=== PATIENT | female | born 1975 | race Two or more races ===

== ENCOUNTER 2021-04-15 11:13 | Emergency (ER) | payer MEDICAID, OTHER ==
[~2021-04-15] VITALS: Ht 160 cm; Wt 81.6 kg
[2021-04-15] MEDS ORDERED: ASPirin 81 mg TAB PO ONE (11:30)
[2021-04-15 12:06] LABS: Basophils # (auto) 0.1 10 ^3/uL (0-0.2); Eosinophils # (auto) 0.2 10 ^3/uL (0-0.8); Monocytes # (auto) 0.5 10 ^3/uL (0-1.3); Monocytes % (auto) 4.6 % (0.0-12.0)
[2021-04-15 12:08] LABS: Basophils % (auto) 0.7 % (0.0-2.0); Eosinophils % (auto) 2.2 % (0.0-7.0); Hematocrit 41.1 % (36.0-46.0); Hemoglobin 13.6 g/dL (12.2-16.2); Lymphocytes # (auto) 2.6 10 ^3/uL (0.4-5.4); Lymphocytes % (auto) 26.2 % (10.0-50.0); Mean Corpuscular Hemoglobin 25.1 pg (28.0-32.0); Mean Corpuscular Hgb Conc. 33.1 g/dL (32.0-36.0); Mean Corpuscular Volume 75.9 fL (80.0-100.0); Neutrophils # (auto) 6.6 10 ^3/uL (1.6-8.6); Neutrophils % (auto) 66.3 % (37.0-80.0); Nucleated Red Blood Cells % 0.1 %; Red Blood Cells 5.42 10^6/uL (4.0-5.20); Red Cell Distribution Width 16.3 % (11.8-14.3)
[2021-04-15 12:21] LABS: Albumin 3.3 g/dL (3.4-5.0); Anion Gap 8 (5-15); Blood Urea Nitrogen 16 mg/dL (7-18); Calcium 8.9 mg/dL (8.5-10.1); Carbon Dioxide 26 mmol/L (21-32); Chloride 106 mmol/L (98-107); Glucose 131 mg/dL (74-106); Potassium 3.7 mmol/L (3.5-5.1); Sodium 140 mmol/L (136-145)
[2021-04-15 12:27] LABS: Alanine Aminotransferase 26 U/L (13-56); Alkaline Phosphatase 153 U/L (45-117); Aspartate Aminotransferase 12 U/L (15-37); BUN/Creatinine Ratio 27.1; Bilirubin, Total 0.4 mg/dL (0.2-1.0); GFR African American 142 mL/min; GFR Non-African American 118 mL/min
[2021-04-15 13:57] VITALS: BP 118/66
== END 2021-04-15 13:59 | disposition home or self-care (01) ==
LOC: ER 11:13
DX: R07.89 Other chest pain (principal); I10 Essential (primary) hypertension
CPT/HCPCS: 36415; 71046; 80053; 84484; 85025; 85379; 93005

== ENCOUNTER → 2022-12-20 | Outpatient (CLI) | payer MEDICAID ==
[2022-12-20 09:23] LABS: Basophils # (auto) 0 10 ^3/uL (0-0.2); Basophils % (auto) 0.3 % (0.0-2.0); Mean Corpuscular Hgb Conc. 33.4 g/dL (32.0-36.0); Neutrophils # (auto) 8.7 10 ^3/uL (1.6-8.6)
[2022-12-20 09:25] LABS: Eosinophils # (auto) 0.2 10 ^3/uL (0-0.8); Hemoglobin 13.3 g/dL (12.2-16.2); Lymphocytes # (auto) 2.3 10 ^3/uL (0.4-5.4); Lymphocytes % (auto) 19.5 % (10.0-50.0); Mean Corpuscular Hemoglobin 26.6 pg (28.0-32.0); Mean Corpuscular Volume 79.8 fL (80.0-100.0); Monocytes # (auto) 0.7 10 ^3/uL (0-1.3); Monocytes % (auto) 5.7 % (0.0-12.0); Neutrophils % (auto) 72.5 % (37.0-80.0); Red Blood Cells 5.01 10^6/uL (4.0-5.20); Red Cell Distribution Width 14.3 % (11.8-14.3)
[2022-12-20 09:33] LABS: Urine Bacteria FEW /hpf (None Seen); Urine Blood Negative /uL (Negative); Urine Hyaline Cast FEW /lpf (0 - 2); Urine Specific Gravity 1.008 (1.001-1.035); Urine WBC 2 /hpf (0 - 5)
[2022-12-20 10:40] LABS: Potassium 3.9 mmol/L (3.5-5.1)
[2022-12-20 10:54] LABS: Albumin 3.4 g/dL (3.4-5.0); BUN/Creatinine Ratio 26.3 (10.0-20.0); Bilirubin, Total 0.4 mg/dL (0.2-1.0); Calcium 8.7 mg/dL (8.5-10.1); Total Protein 7.7 g/dL (6.4-8.2); Uric Acid 4.2 mg/dL (2.6-6.0)
== END | disposition home or self-care (01) ==
LOC: LAB 08:53
PROVIDERS: ATTEND Student in an Organized Health Care Education/Training Program
DX: I10 Essential (primary) hypertension (principal); R73.9 Hyperglycemia, unspecified; E55.9 Vitamin D deficiency, unspecified; M25.50 Pain in unspecified joint
CPT/HCPCS: 36415; 80053; 80061; 81001; 82306; 84439; 84443; 84550; 85025; 86038; 86431

== ENCOUNTER 2025-04-01 17:59 | Emergency (ER) | payer MEDICAID ==
[~2025-04-01] VITALS: Ht 162.6 cm; Wt 83.2 kg
[2025-04-01 18:00] VITALS: BP 165/97; PULSE 97; RESP 16; TEMP 98; O2SAT 95
[2025-04-01] MEDS ORDERED: CYCL-614 PO (18:46)
[2025-04-01] MEDS ORDERED: IBUP-1456 PO (18:46)
--- NOTE | 2025-04-01 18:48 | ED.PDOC ---
Musculoskeletal HPI Comments 49-year-old female presents to ER with complaints of back pain x one week. Patient with past medical history significant for chronic lower lumbar back pain x1 year reports that she has been experiencing worsening lower lumbar back pain x1 week. She rates her current pain a 9/10 to right lower lumbar region with radiation down right posterior leg. States she has been taking ibuprofen for her pain with slight relief. Patient presents to ER ambulatory on arrival, in mild distress. Denies fever, body aches, chills, night sweats, numbness/tingling, trauma/falls, abdominal/pelvic pain, chest pain, changes in urination/BM or any further symptoms/complain Chief Complaint: Lower Extremity Time Seen by MD: 18:13 Primary Care Provider: DEIDRE Sneed Notes: Nurses Notes, Medications, Allergies Allergies: Coded Allergies: NO KNOWN ALLERGIES (Unverified , 04/15/21) Home Meds Active Scripts Cyclobenzaprine HCl (Cyclobenzaprine Hydrochlo) 5 Mg Tab, 5 MG PO QHSP, #14 TAB 0 Refills Prov:JOSEPH LAMBERT 04/01/25 Ibuprofen (Ibuprofen) 800 Mg Tab, 1 TAB PO TID PRN, #30 TAB 0 Refills Prov:JOSEPH LAMBERT 04/01/25 Information Source: Patient Mode of Arrival: Ambulatory Past Medical History PAST MEDICAL HISTORY: HTN Past Medical History (Other): Chronic lumbar back pain x "x 1 year" Surgical History: SUPPLY REQUIREMENTS OFFICER History: No Pertinent SUPPLY REQUIREMENTS OFFICER History Family History Family History: Family hx of DM Social History Smoker: Non-Smoker Alcohol: Denies ETOH Use Drugs: Denies Drug Use Lives In: Home Constitutional: denies: chills, diaphoresis, fatigue, fever, malaise, sweats, weakness, others EENTM: denies: blurred vision, double vision, ear bleeding, ear discharge, ear drainage, ear pain, ear ringing, eye pain, eye redness, hearing loss, mouth pain, mouth swelling, nasal discharge, nose bleeding, nose congestion, nose pain, photophobia, tearing, throat pain, throat swelling, voice changes, others Respiratory: denies: cough, hemoptysis, orthopnea, SOB at rest, shortness of breath, SOB with excertion, stridor, wheezing, others Cardiovascular: denies: chest pain, dizzy spells, diaphoresis, Dyspnea on exertion, edema, irregular heart beat, left arm pain, lightheadedness, palpitations, PND, syncope, others Gastrointestinal: denies: abdomen distended, abdominal pain, blood streaked bowels, constipated, diarrhea, dysphagia, difficulty swallowing, hematemesis, melena, nausea, poor appetite, poor fluid intake, rectal bleeding, rectal pain, vomiting, others Genitourinary: denies: abnormal vagina bleeding, burning, dyspareunia, dysuria, flank pain, frequency, hematuria, incontinence, pain, , vagina discharge, urgency, others Neurological: denies: dizziness, fainting, headache, left sided numbness, left sided weakness, numbness, paresthesia, pre-existing deficit, right sided numbness, right sided weakness, seizure, speech problems, tingling, tremors, weakness, others Musculoskeletal: reports: others (As stated in HPI) Integumetry: denies: bruises, change in color, change in hair/nails, dryness, laceration, lesions, lumps, rash, wounds, others Allergic/Immunocompromised: denies: Difficulty Healing, Frequent Infections, Hives, Itching, others Hematologic/Lymphatic: denies: anemia, blood clots, easy bleeding, easy bruising, swollen glands, others Endocrine: denies: excessive hunger, excessive sweating, excessive thirst, excessive urination, flushing, intolerance to cold, intolerance to heat, unexplained weight gain, unexplained weight loss, others Psychiatric: denies: anxiety, bipolar disorder, depression, hopeless, panic disorder, schizophrenia, sleepless, suicidal, others Physical Exam General Appearance: Mild Distress, Obese HEENT: PERRL/EOMI Neck: Full Range of Motion, Non-Tender, Normal Respiratory: Chest Non-Tender, Lungs Clear, No Accessory Muscle Use, No Respiratory Distress, Normal Breath Sounds Cardiovascular: No Murmur, No Gallop, Regular Rate/Rhythm Breast Exam: Deferred Gastrointestinal: Non Tender, No Pulsatile Mass, Soft Genitalia: Deferred Pelvic: Deferred Rectal: Deferred Extremities: No calf tenderness, Normal capillary refill, Normal range of motion Musculoskeletal : Extremity Location: Back (TTP to right lower lumbar paraspinals noted. No skin changes noted. Gait slowed due to pain localized to right lower lumbar paraspinals) Neurologic: Alert, No Motor Deficits, No Sensory Deficits Cerebellar Function: Normal Reflexes: Normal Skin: Dry, Normal Color, Warm Peripheral Pulses: 2+ femoral (R), 2+ femoral (L), 2+ dorsalis pedis (R), 2+ dorsalis pedis (L), 2+ Radial (R), 2+ Radial (L), 2+ Brachial (R), 2+ Brachial (L) Lymphatic: No Adenopathy Was a procedure done? Was a procedure done?: No Sedation Sedation?: No Differential Diagnosis EXT Differential Diagnosis: Fracture, Dislocation, Myocardial Infarction, Neurovascular injury X-Ray, Labs, Meds, VS Vital Signs Date Time Temp Pulse Resp B/P (MAP) Pulse Ox O2 Delivery O2 Flow Rate FiO2 04/01/25 18:00 98.0 97 16 165/97 95 98.0 Current Medications Medications (Trade) Dose Ordered Sig/Lyla Route Start Time Stop Time Status Last Admin Ketorolac Tromethamine (Toradol Injection) 60 mg ONCE ONCE IM 04/01/25 18:45 04/01/25 18:46 DC 04/01/25 18:52 PATIENT: HOWARD RENECCT: [id number]: [id number] : 1975 LOC: ER ROOM / BED: / AGE / SEX: 49 / F ADM STATUS: REG ER SERVICE 40 ORDERING PHYSICIAN: JOSEPH LAMBERT PROCEDURE(s): LUMB2 - LUMBAR SPINE 3 VIEW REASON: lumbar back pain ORDER NUMBER(s): [id number], ACCESSION NUMBER(s): [id number] EXAM: XY LUMBAR SPINE 3 VIEW INDICATION: lumbar back pain TECHNIQUE: 3 views of the lumbar spine COMPARISON: None FINDINGS/IMPRESSION: No radiographic evidence of an acute osseous abnormality. There is no acute fracture, osseous malalignment, or aggressive focal osseous lesion. Gentle rotatory levocurvature centered at the thoracolumbar junction. Severe stool burden throughout the visualized colon. Calcified fibroids. Relative bony foraminal narrowing at L4-L5 and L5-S1. ATED BY: CHRIS TRIANA MD DICTATED DATE/TIME: 04/01/251928 SIGNED BY: CHRIS TRIANA MD SIGNED DATE/TIME: 04/01/251928 CC: Lumbar spine x-ray reviewed Toradol 60 mg IM ordered Patient had improvement in symptoms and in no distress prior to discharge Advised on rest/no strenuous activity Advised to follow up with PCP in 1-2 days Patient verbalized understanding and agreeable with current plan of care Advised to return to ER immediately if symptoms worsen Images Reviewed?: Images reviewed and evaluated by me Time of 1ST Reevaluation: 18:20 Reevaluation 1ST: N/A Patient Education/Counseling: Diagnosis, Treatment, Prognosis, Need For Follow Up Family Education/Counseling: No Family Present Departure 1 Departure Time of Disposition: 18:42 Impression: Primary Impression: Lumbar strain Qualified Codes: S39.012A - Strain of muscle, fascia and tendon of lower back, initial encounter Disposition: HOME / SELF CARE / HOMELESS Condition: Stable e-Prescriptions Cyclobenzaprine HCl (Cyclobenzaprine Hydrochlo) 5 Mg Tab 5 MG PO QHSP, #14 TAB 0 Refills Prov: JOSEPH LAMBERT 04/01/25 Ibuprofen (Ibuprofen) 800 Mg Tab 1 TAB PO TID PRN, #30 TAB 0 Refills Prov: JOSEPH LAMBERT 04/01/25 Discharged With: Friend Critical Care Note Critical Care Time?: No Stability Stability form required: No Heart Score Heart Score: Heart Score Response (Comments) Value History N/A 0 EKG N/A 0 Age N/A 0 Risk Factors N/A 0 Troponin N/A 0 Total 0 JOSEPH LAMBERT Apr 01, 2025 18:48
[2025-04-01] MEDS: KETOROLAC TROMETH 60MG/2ML VIAL IM ONE (18:52)
--- NOTE | 2025-04-01 19:31 | DVH ---
EXAM: XY LUMBAR SPINE 3 VIEW INDICATION: lumbar back pain TECHNIQUE: 3 views of the lumbar spine COMPARISON: None FINDINGS/IMPRESSION: No radiographic evidence of an acute osseous abnormality. There is no acute fracture, osseous malalig nment, or aggressive focal osseous lesion. Gentle rotatory levocurvature centered at the thoracolumba r junction. Severe stool burden throughout the visualized colon. Calcified fibroids. Relative bony fo raminal narrowing at L4-L5 and L5-S1.
== END 2025-04-01 19:42 | disposition home or self-care (01) ==
LOC: ER 18:00
DX: S39.012A Strain of muscle, fascia and tendon of lower back, initial encounter (principal); I10 Essential (primary) hypertension; X58.XXXA Exposure to other specified factors, initial encounter; Y93.89 Activity, other specified; Y92.89 Other specified places as the place of occurrence of the external cause; Y99.8 Other external cause status
CPT/HCPCS: 72100; 96372; 99283; J1885